=== PATIENT | male | born 1970 | race Native Hawaiian/Other Pacific Islander ===

== ENCOUNTER 2022-12-20 06:29 | Outpatient (CLI) | payer OTHER ==
[2022-12-20 07:16] LABS: PLATELET COUNT 305 K/uL (142-355)
[2022-12-20 07:31] LABS: POTASSIUM 4.7 mmol/L (3.6-5.2)
== END 2022-12-20 19:09 | disposition home or self-care (01) ==
LOC: LAB 06:29
PROVIDERS: ATTEND Family Medicine
DX: I10 Essential (primary) hypertension (principal); R51.9 Headache, unspecified; E11.65 Type 2 diabetes mellitus with hyperglycemia
CPT/HCPCS: 36415; 80053; 80061; 81002; 83036; 85027